=== PATIENT | female | born 1970 | race Caucasian/White ===

== ENCOUNTER → 2023-01-02 06:47 | Outpatient (CLI) | payer OTHER, SELFPAY ==
--- NOTE | 2023-01-02 | DI.ECHO.S_ITS ---
Version: 1 Study ID: [id number] [place] [id number] Name: YOGI RUSHING Study Date: 01/02/2023, 7: 05 AM : 1970 BP: 131 / 88 mmHg Gender: Female Height: 66 in Age: 52 Years Weight: 150.003 lb BSA: 1.77 mA? Ordering: WENDI LOZOYA Referring: WENDI LOZOYA Clinician: Elizabeth Andres Reason For Study: Thiracic Aortic Ectasia History: Summary Statements Normal sinus rhythm. Normal LV size and mild concentric LVH; normal wall motion and LV systolic function. EF is 55-60%. Stage I diastolic dysfunction. Normal chamber sizes. No significant valvular abnormalities. Mildly-moderately dilated ascending aorta measuring 4.4 cm diameter. No prior study available for comparison. Procedure: A two-dimensional transthoracic echocardiogram with color flow and Doppler was performed. The study quality was technically adequate. There is no prior echocardiogram noted for this patient. The patient was in normal sinus rhythm during the exam. Left Ventricle: Diastolic parameters suggest a relaxation abnormality of the left ventricle, consistent with probable normal filling pressures. The ejection fraction is estimated to be 55-60%. The left ventricle is normal in size. Right Ventricle: The right ventricle is normal in size and function. Atria: The atrial septum is aneurysmal. There is no Doppler evidence for an interatrial shunt. The left atrial size is normal. Right atrial size is normal. Mitral Valve: There is trace mitral regurgitation. There is no mitral valve stenosis. The mitral valve is normal. Aortic Valve: There is trace aortic regurgitation. There is no aortic valve stenosis. The aortic valve is trileaflet. The aortic valve opens well. Tricuspid Valve: There is mild tricuspid regurgitation. The right ventricular systolic pressure is estimated to be at least 18 mmHg based on an estimated right atrial pressure of 3 mm Hg. There is no tricuspid stenosis. The tricuspid valve is normal. Pulmonic Valve: There is trace pulmonic regurgitation. There is no pulmonic valvular stenosis. The pulmonic valve leaflets are thin and pliable; valve motion is normal. Great Vessels: The ascending aorta is mild-moderately enlarged. The aortic root is normal size. The IVC is of normal diameter and collapses greater than 50% with a sniff. This suggests a low right atrial pressure of 3 mm Hg. The pulmonary artery is normal size. Pericardium/ Pleura: There is no pericardial effusion. 2D and M-Mode Measurements and Calculations LVIDd: 4.5 cm AoV Openin.80 cm LVIDs: 3.0 cm LVOT diam: 2.00 cm IVSd: 1.10 cm Ao root diam: 3.1 cm LVPWd: 1.10 cm asc Aorta Diam: 4.3 cm LV prince. diameter/BSA (cm/m^2): 2.5 LV sys. 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 RA area: 16.3 interlocking tower operator? LA A2 area: 18.7 interlocking tower operator? RA long axis: 5.6 cm LA length (vol): 5.6 cm RA vol: 40.5 ml LA vol: 32.3 ml RA : 22.9 ml/mA? LA vol index: 18.3 ml/mA? Doppler Measurements and Calculations Ao V2 max: 129.7 cm/sec LVOT Max Hakan: 82.6 cm/sec Ao V2 mean: 90.7 cm/sec LV V1 max P.7 mmHg Ao V2 VTI: 30.1 cm LV V1 VTI: 19.9 cm Ao max P.0 mmHg SV(LVOT): 62.4 ml Ao mean P.0 mmHg ANNIE(I,D): 2.08 interlocking tower operator? ANNIE(V,D): 2.00 interlocking tower operator? ANNIE indexed to BSA (cm^2/m^2): 1.17 sev ratio: 0.66 MV E max hakan: 73.4 cm/sec MV dec time: 0.24 sec MV A max hakan: 83.6 cm/sec MV E/A: 0.88 Med Peak E' Hakan: 6.0 cm/sec Lat Peak E' Hakan: 10.8 cm/sec E/e' average: 9.5 TR max hakan: 191.4 cm/sec PA mean P.00 mmHg TR max P.1 mmHg PA V2 max: 102.0 cm/sec Electronically signed by: Wendi Lozoya M.D. 01/03/2023, 1: 53 AM
== END ==
PROVIDERS: Referring Provider Internal Medicine; Visit Provider Internal Medicine
DX: I07.1 Rheumatic tricuspid insufficiency (principal); I77.810 Thoracic aortic ectasia; I77.89 Other specified disorders of arteries and arterioles
CPT/HCPCS: 93306